=== PATIENT | female | born 1995 ===

== ENCOUNTER 2018-06-19 14:27 | Emergency (ER) | payer MEDICAID ==
[2018-06-19 15:06] VITALS: RESP 18; TEMP 98.1; O2SAT 100
--- NOTE | 2018-06-19 15:53 | ED PDOC ---
HPI: Female Pain Time Seen by Provider: 06/19/18 14:57 Chief Complaint (Nursing): Female Genitourinary Chief Complaint (Provider): urinary pain and frequency, History Per: Patient History/Exam Limitations: no limitations Onset/Duration Of Symptoms: Days (5), Gradual Current Symptoms Are (Timing): Still Present Severity: Moderate Quality Of Discomfort: Burning Associated Symptoms: Nausea. denies: Fever, Chills, Vomiting, Diarrhea, Loss Of Appetite, Back Pain Alleviating Factors: None Additional Complaint(s): 22yo female states approximately 10wk presents c/o urinary frequency, urgency and discomfort for last several days. Also has pelvic pressure, is currently about 10wk . . No recent UTIs. Denies concern for STDs. Past Medical History Reviewed: Historical Data, Nursing Documentation, Vital Signs Vital Signs: Last Vital Signs Temp 98.1 F 06/19/18 15:02 Pulse 81 06/19/18 15:02 Resp 18 06/19/18 15:02 BP 99/61 L 06/19/18 15:02 Pulse Ox 100 06/19/18 15:02 - Medical History PMH: No Chronic Diseases - Surgical History Surgical History: No Surg Hx - Family History Family History: States: Unknown Family Hx - Social History Current smoker - smoking cessation education provided: No - Home Medications Home Medications: Ambulatory Orders Medication Instructions Recorded Cephalexin [cephalexin] 500 mg PO TID #21 cap 06/19/18 Doxylamine/Pyridoxine HCl (B6) 1 each PO HS PRN #10 tablet. 06/19/18 [Eddie Torres 10-10 mg Tablet] Vit Calc,Iron,Folic 1 each PO DAILY #14 tablet 06/19/18 [ Vitamins] - Allergies Allergies/Adverse Reactions: Allergies Allergy/AdvReac Type Severity Reaction Status Date / Time No Known Allergies Allergy Verified 06/19/18 14:54 Review of Systems ROS Statement: Except As Marked, All Systems Reviewed And Found Negative Constitutional: Negative for: Fever, Weight loss Eyes: Negative for: Vision Change Cardiovascular: Negative for: Chest Pain Respiratory: Negative for: Shortness of Breath Gastrointestinal: Negative for: Abdominal Pain Genitourinary Female: Positive for: Dysuria, Frequency, Vaginal Discharge, Pelvic Pain. Negative for: Hematuria Musculoskeletal: Negative for: Neck Pain, Back Pain Skin: Negative for: Rash, Lesions, Jaundice Neurological: Negative for: Weakness, Headache Physical Exam - Reviewed Nursing Documentation Reviewed: Yes Vital Signs Reviewed: Yes - Physical Exam Appears: Positive for: Well, Non-toxic, No Acute Distress Head Exam: Positive for: ATRAUMATIC, NORMAL INSPECTION, NORMOCEPHALIC Skin: Positive for: Normal Color, Warm, DRY Eye Exam: Positive for: EOMI, Normal appearance, PERRL ENT: Positive for: Normal ENT Inspection Neck: Positive for: Normal, Painless ROM Cardiovascular/Chest: Negative for: Tachycardia Respiratory: Positive for: Normal Breath Sounds. Negative for: Respiratory Distress Gastrointestinal/Abdominal: Positive for: Soft, Tenderness (mild R>L pelvic tenderness). Negative for: Guarding, Rebound Back: Positive for: Normal Inspection Extremity: Positive for: Normal ROM Neurologic/Psych: Positive for: Alert, Oriented. Negative for: Motor/Sensory Deficits - Laboratory Results Result Diagrams: 06/19/18 16:33 06/19/18 16:33 Urine POC: Positive Urine dip results: Positive for: Nitrate - ECG O2 Sat by Pulse Oximetry: 100 Pulse Ox Interpretation: Normal Medical Decision Making Medical Decision Making: Initial plan: workup for UTI in setting without care initiated --check US confirm viability, UA/Cx, labs Time: 1755 --US tranvaginal FINDINGS: No pole identified Gestational age 5 weeks 3 days based on gestational sac measurement 1.24 cm Gestational age derived from LMP: 11 weeks 3 days CHRISTINA based on LMP: 01/05/2019 CHRISTINA based on biometry: 02/16/2019. Gestational concordance not apparent Yolk sac identified Uterus: Unremarkable. Cervix: No Cervical abnormalities: Negative examination for cervical dilatation or effacement. Closed cervix measuring 4.0 cm Subchorionic hemorrhage: None UTERUS: 4.6 x 5.1 x 8.8 cm. ADNEXA: Right: 1.5 x 3.1 x 3.1 cm. Normal Doppler arterial waveform documented. Left: 2.2 x 2.5 x 2.8 cm. Normal Doppler arterial waveform documented Fluid in the cul-de-sac: Trace free fluid identified in the pelvis/cul de sac. IMPRESSION: Presumed early intrauterine gestation. Yolk sac and gestational sac identified without pole. Time: 1820 --UA is unremarkable except for evidence of UTI. Patient states menses are irregular, therefore, dates are off. However, if LMP is accurate, it may indicate discordance. Provider explained results and concerns to patient, advising a repeat US in 1-2 weeks. Patient refuses pelvic exam today and states that she needs to leave the ED. Patient will be discharged home with Rx for Keflex and vitamins. Advised patient to follow up with urine culture results. Disposition - Clinical Impression Clinical Impression: Threatened miscarriage, UTI (urinary tract infection) - Disposition Referrals: [facility] [Outside] Condition: STABLE Additional Instructions: Followup with OB doctor in next week for further testing. Return to ER for any bleeding, weakness, fever, back pain or any concern. Pelvic exam was offered today but you declined. Please speak to your OB doctor about this test. DARLING STERN, thank you for letting us take care of you today. Your provider was Yoel Henry III, DO and you were treated for PREG,ABD PAIN. The emergency medical care you received today was directed at your acute symptoms. If you were prescribed any medication, please fill it and take as directed. It may take several days for your symptoms to resolve. Return to the Emergency Department if your symptoms worsen, do not improve, or if you have any other problems. Please contact your doctor or call one of the physicians/clinics you have been referred to that are listed on the Patient Visit Information form that is included in your discharge packet. Bring any paperwork you were given at discharge with you along with any medications you are taking to your follow up visit. Our treatment cannot replace ongoing medical care by a primary care provider outside of the emergency department. Thank you for allowing the [facility] team to be part of your care today. If you had an X-Ray or CT scan: A Radiologist will review the ED reading if any change in treatment is needed we will contact you. If you had a blood, urine, or wound culture: It will take several days for the results, if any change in treatment is needed we will contact you. If you had an STI test: It will take 48 hours for the results. Please call after 1 week if you have not heard back. Prescriptions: Cephalexin [cephalexin] 500 mg PO TID #21 cap Doxylamine/Pyridoxine HCl (B6) [Eddie Torres 10-10 mg Tablet] 1 each PO HS PRN # 10 tablet. PRN Reason: Nausea/Vomiting Vit Calc,Iron,Folic [ Vitamins] 1 each PO DAILY #14 tablet Instructions: Urinary Tract Infections in Adults, Medications and , Threatened Miscarriage, hCG Test Forms: [facility] (Croatian)
[2018-06-19 16:12] LABS: SQUAMOUS EPITHIAL 4 /hpf (0-5); URINE BACTERIA OCC (<OCC); URINE BILIRUBIN NEGATIVE (NEGATIVE); URINE BLOOD NEGATIVE (NEGATIVE); URINE CLARITY CLOUDY (Clear); URINE COLOR YELLOW (YELLOW); URINE GLUCOSE (UA) NEG (Normal); URINE LEUKOCYTE ESTERASE NEG Leu/uL (Negative); URINE PROTEIN NEGATIVE (NEGATIVE); URINE UROBILINOGEN 0.2-1.0 mg/dL (0.2-1.0)
[2018-06-19 16:39] LABS: BASO % 0.4 % (0.0-2.0); EOS # 0.1 K/uL (0.0-0.7); EOS % 1.4 % (0.0-4.0); LYMPH # 1.9 K/uL (1.0-4.3); MEAN CELL VOLUME 87.4 fl (81.0-99.0); MEAN CORPUSCULAR HEMOGLOBIN 29.8 pg (27.0-31.0); MEAN CORPUSCULAR HGB CONC 34.1 g/dL (33.0-37.0); MEAN PLATELET VOLUME 10.1 fl (7.2-11.7); MONO # 0.5 K/uL (0.0-0.8); MONO % 6.4 % (0.0-10.0); NEUT # 5.4 K/uL (1.8-7.0); NEUT % 67.8 % (50.0-75.0); RBC 4.36 Mil/uL (3.80-5.20); RED CELL DISTRIBUTION WIDTH 12.8 % (11.5-14.5)
[2018-06-19 16:54] LABS: ALB/GLOB RATIO 1.4 (1.0-2.1); ALBUMIN 4.4 g/dL (3.5-5.0); ALT/SGPT 48 U/L (9-52); AST/SGOT 32 U/L (14-36); BLOOD UREA NITROGEN 7 mg/dl (7-17); CALCIUM 9.5 mg/dL (8.4-10.2); GFR AFRICAN-AMERICAN > 60; GFR NON-AFRICAN AMERICAN > 60
--- NOTE | 2018-06-19 17:56 | US ---
Date of service: 06/19/2018 PROCEDURE: 1st trimester ultrasound HISTORY: approx 9 wks preg pelvic pain Beta HCG results: units. Unknown. COMPARISON: None available. TECHNIQUE: Standard protocol for this study/examination. FINDINGS: LMP: 03/31/2018 history of irregular cycles. Prior examinations from the current : None. TECHNIQUE: Real-time 2D imaging, duplex and color Doppler. FINDINGS: No pole identified Gestational age 5 weeks 3 days based on gestational sac measurement 1.24 cm Gestational age derived from LMP: 11 weeks 3 days CHRISTINA based on LMP: 01/05/2019 CHRISTINA based on biometry: 02/16/2019. Gestational concordance not apparent Yolk sac identified Uterus: Unremarkable. Cervix: No Cervical abnormalities: Negative examination for cervical dilatation or effacement. Closed cervix measuring 4.0 cm Subchorionic hemorrhage: None UTERUS: 4.6 x 5.1 x 8.8 cm. ADNEXA: Right: 1.5 x 3.1 x 3.1 cm. Normal Doppler arterial waveform documented. Left: 2.2 x 2.5 x 2.8 cm. Normal Doppler arterial waveform documented Fluid in the cul-de-sac: Trace free fluid identified in the pelvis/cul de sac. IMPRESSION: Presumed early intrauterine gestation. Yolk sac and gestational sac identified without pole.
[2018-06-19 19:42] VITALS: BP 108/70; PULSE 79
== END 2018-06-19 18:30 | disposition home or self-care (01) ==
LOC: H.ER 14:27
DX: O20.0 Threatened abortion (principal); O23.41 Unspecified infection of urinary tract in pregnancy, first trimester; Z3A.09 9 weeks gestation of pregnancy

== ENCOUNTER 2019-03-25 01:29 | Emergency (ER) | payer MEDICAID ==
[2019-03-25 01:45] VITALS: BP 110/75; PULSE 102; RESP 18; TEMP 97.9; O2SAT 99
--- NOTE | 2019-03-25 02:37 | ED PDOC ---
HPI: Psych/Substance Abuse Time Seen by Provider: 03/25/19 01:34 Chief Complaint (Nursing): Alcohol Ingestion Chief Complaint (Provider): Alcohol Ingestion History Per: Patient History/Exam Limitations: intoxication Onset/Duration Of Symptoms: Hrs Current Symptoms Are (Timing): Still Present Modifying Factor(s): Alcohol Additional Complaint(s): 23 y/o female found by [place] [employer] at a bar brought in for public intoxication. Patient admits to alcohol use today. Patient denies drug use, head injury and any complaints at this time. Patient requesting to go home at this time. PMD: no provider Past Medical History Reviewed: Historical Data, Nursing Documentation, Vital Signs Vital Signs: Last Vital Signs Temp 97.9 F 03/25/19 01:44 Pulse 102 H 03/25/19 01:44 Resp 18 03/25/19 01:44 BP 110/75 03/25/19 01:44 Pulse Ox 99 03/25/19 01:44 Primary Care Provider: FAMILY PROVIDER,NO - Medical History PMH: No Chronic Diseases - Surgical History Surgical History: No Surg Hx - Family History Family History: States: Unknown Family Hx - Social History Alcohol: > 2 Drinks/Day - Home Medications Home Medications: Ambulatory Orders Medication Instructions Recorded Cephalexin [cephalexin] 500 mg PO TID #21 cap 06/19/18 Doxylamine/Pyridoxine HCl (B6) 1 each PO HS PRN #10 tablet. 06/19/18 [Eddie Torres 10-10 mg Tablet] Vit Calc,Iron,Folic 1 each PO DAILY #14 tablet 06/19/18 [ Vitamins] - Allergies Allergies/Adverse Reactions: Allergies Allergy/AdvReac Type Severity Reaction Status Date / Time No Known Allergies Allergy Verified 03/25/19 01:45 Review of Systems ROS Statement: Except As Marked, All Systems Reviewed And Found Negative Psych: Positive for: Other (alcohol intoxication) Physical Exam - Reviewed Nursing Documentation Reviewed: Yes Vital Signs Reviewed: Yes - Physical Exam Appears: Positive for: No Acute Distress (but visibly intoxicated, crying. No signs of external trauma noted) Head Exam: Positive for: ATRAUMATIC Skin: Positive for: Normal Color, Warm, Dry Eye Exam: Positive for: Normal appearance, EOMI, PERRL Neck: Positive for: Normal, Painless ROM Cardiovascular/Chest: Positive for: Regular Rate, Rhythm. Negative for: Murmur Respiratory: Positive for: Normal Breath Sounds. Negative for: Respiratory Distress Gastrointestinal/Abdominal: Positive for: Normal Exam, Soft. Negative for: Tenderness Extremity: Positive for: Normal ROM. Negative for: Deformity Neurological/Psych: Positive for: Awake, Alert, Gait (steady). Negative for: Motor/Sensory Deficits - ECG O2 Sat by Pulse Oximetry: 99 (RA) Pulse Ox Interpretation: Normal Medical Decision Making Medical Decision Making: Time: 144 A/P: 23 y/o female presents to the ED for alcohol intoxication. -- Patient without any trauma noted on physical examination. -- Will observe until clinically sober or until family member can come chart picker patient. Time: 234 -- Patient's father arrived to the ED to chart picker the patient. Scribe Attestation: Documented by Radha Dupont, acting as a scribe Earline Delgadillo MD. Provider Scribe Attestation: All medical record entries made by the Scribe were at my direction and personally dictated by me. I have reviewed the chart and agree that the record accurately reflects my personal performance of the history, physical exam, medical decision making, and the department course for this patient. I have also personally directed, reviewed, and agree with the discharge instructions and disposition. Disposition - Clinical Impression Clinical Impression: Alcohol abuse Counseled Patient/Family Regarding: Studies Performed - Disposition Referrals: Alcoholics Anonymous [Outside] Disposition: Routine/Home Disposition Time: 02:35 Condition: GOOD Instructions: Alcohol Use - When Is Drinking a Problem? Forms: [facility] (Lebanese)
== END 2019-03-25 02:45 | disposition home or self-care (01) ==
LOC: H.ER 01:29
DX: F10.129 Alcohol abuse with intoxication, unspecified (principal)